=== PATIENT | female | born 1985 | race Caucasian/White ===

== ENCOUNTER 2017-10-31 10:12 | Outpatient (CLI) | payer BC ==
--- NOTE | 2017-10-31 20:19 | RAD ---
RIGHT ANKLE THREE VIEWS: Date: 10-31-17 FINDINGS: Mild soft tissue swelling is seen laterally. No fracture was seen. The joint space appears normal. IMPRESSION: Mild lateral swelling. POS: HOME
== END 2017-10-31 10:13 | disposition home or self-care (01) ==
LOC: BURRAD 10:12
PROVIDERS: ATTEND Family Medicine
DX: S99.911A Unspecified injury of right ankle, initial encounter (principal)